=== PATIENT | female | born 1945 | race Caucasian/White ===

== ENCOUNTER 2020-05-07 09:31 | Outpatient (CLI) | payer MEDICARE, OTHER ==
[2020-05-07 10:05] LABS: BASOPHILS # (AUTO) 0.1 10^3/uL (0.0-0.1); EOSINOPHILS # (AUTO) 0.3 10^3/uL (0.0-0.7); EOSINOPHILS % (AUTO) 4.8 %; HGB - HEMOGLOBIN 13.1 g/dL (12.0-16.0); LYMPHOCYTES # (AUTO) 1.5 10^3/uL (1.5-3.5); LYMPHOCYTES % (AUTO) 28.1 %; MEAN CORPUSCULAR HEMOGLOBIN 33.9 pg (27.0-31.0); MEAN CORPUSCULAR HGB CONC 33.2 g/dL (32.0-36.0); MEAN CORPUSCULAR VOLUME 102.1 fL (81.0-99.0); MEAN PLATELET VOLUME 9.8 fL (7.9-10.8); MONOCYTES # (AUTO) 0.5 10^3/uL (0.0-1.0); MONOCYTES % (AUTO) 9.3 %; NEUTROPHILS # (AUTO) 2.9 10^3/uL (1.5-6.6); NEUTROPHILS % (AUTO) 56.6 %; PLT - PLATELET COUNT 234 10^3/uL (130-450); RED BLOOD COUNT 3.86 10^6/uL (4.20-5.40); RED CELL DISTRIBUTION WIDTH 13.2 % (12.0-15.0); WHITE BLOOD COUNT 5.2 x10^3/uL (4.8-10.8)
[2020-05-07 10:34] LABS: ALBUMIN 4.5 g/dL (3.2-5.5); ALBUMIN/GLOBULIN RATIO 2.4 (1.0-2.2); ALKALINE PHOSPHATASE 55 IU/L (42-121); ALT ALANINE AMINOTRANSFERASE 34 IU/L (10-60); AST ASPARTATE AMINOTRANSFERASE 31 IU/L (10-42); BUN - BLOOD UREA NITROGEN 22 mg/dL (6-20); CALCIUM 9.1 mg/dL (8.5-10.3); CARBON DIOXIDE - CO2 27 mmol/L (21-32); CHLORIDE 101 mmol/L (101-111); CHOL/HDL RATIO 2.5 (<4.4); CHOLESTEROL 226 mg/dL; CREATININE 0.7 mg/dL (0.4-1.0); GLUCOSE 102 mg/dL (70-100); HDL CHOLESTEROL 91 mg/dL; LDL CHOLESTEROL,CALCULATED 125 mg/dL; LDL/HDL RATIO 1.4 (<4.4); SODIUM 138 mmol/L (135-145); TOTAL PROTEIN 6.4 g/dL (6.7-8.2); VLDL CHOLESTEROL 10 mg/dL
[2020-05-07 11:00] LABS: CRP - C-REACTIVE PROTEIN < 1.0 mg/dL (0-1.0)
[2020-05-07 11:17] LABS: RHEUMATOID FACTOR NEGATIVE (Negative)
--- NOTE | 2020-05-07 14:23 | XRAY Report ---
PROCEDURE: Lumbar Spine 2 View INDICATIONS: LAB DRAW,BACK HIP JOINT PAIN RT,RT KNEE ARTHRITIS TECHNIQUE: 3 views of the lumbar spine were acquired. COMPARISON: None. FINDINGS: Bones: 5 [id number] vertebrae are present. There is normal bony alignment. No vertebral body compression fractures. No suspicious bony lesions. Note is made of mild convex rightward scoliosis centered at L3, and on sagittal imaging the degenerative disc disease is mild to the L3-4 level, and moderate at L4-5 and L5-S1. Facet osteoarthritis becomes progressively more prominent from L3 inferio rly and is most pronounced at L4-5 and L5-S1. This allows anterolisthesis grade 1 of L4 on L5. Soft tissues: Overlying bowel gas pattern is normal. No suspicious soft tissue calcifications. IMPRESSION: No compression fracture found. The degenerative disc disease and facet osteoarthritis is moderate in severity overall, and most pronounced at L4-5 and L5-S1 comprised of both disc degenerat ion and facet osteoarthritis. Spinal and foraminal stenosis at these 2 levels likely is present. Reviewed by: Adalberto Magdaleno MD on 05/07/2020 2:22 PM PDT Approved by: Adalberto Magdaleno MD on 05/07/2020 2:22 PM PDT Station ID: [id number]
--- NOTE | 2020-05-07 14:26 | XRAY Report ---
PROCEDURE: Hips 2V BILAT INDICATIONS: LAB DRAW,BACK HIP JOINT PAIN RT,RT KNEE ARTHRITIS TECHNIQUE: 3 views of the hips bilaterally were acquired. COMPARISON: None FINDINGS: Bones: No fractures or dislocations, but there is asymmetric hip joint osteoarthritis severe on the right and mild on the left. There is near [id number]-cu-[id number] articulation at the right hip joint.. No susp icious bony lesions. The visualized pelvic ring appears intact. Soft tissues: No suspicious soft tissue calcifications or masses. IMPRESSION: Asymmetric prominent right hip joint osteoarthritis with near [id number]-mc-[id number] articulation at the right hip joint, when compared to near normal appearance on the left. Reviewed by: Adalberto Magdaleno MD on 05/07/2020 2:24 PM PDT Approved by: Adalberto Magdaleno MD on 05/07/2020 2:24 PM PDT Station ID: [id number]
--- NOTE | 2020-05-07 14:28 | XRAY Report ---
PROCEDURE: Knee 4 View BILAT INDICATIONS: LAB DRAW,BACK HIP JOINT PAIN RT,RT KNEE ARTHRITIS TECHNIQUE: 3 views of the bilateral knee(s) were acquired. COMPARISON: None. FINDINGS: Bones: No fractures or dislocations, but there is a mild degree of medial compartment knee joint ost eoarthritis as indicated by joint space narrowing. There is no joint effusion or intra-articular loos e body. No suspicious bony lesions. Soft tissues: No joint effusion. No suspicious soft tissue calcifications. IMPRESSION: Mild medial compartment knee joint osteoarthritis symmetric bilaterally. Reviewed by: Adalberto Magdaleno MD on 05/07/2020 2:26 PM PDT Approved by: Adalberto Magdaleno MD on 05/07/2020 2:26 PM PDT Station ID: [id number]
== END 2020-05-07 09:32 | disposition home or self-care (01) ==
LOC: LAB 09:31 → DI 09:32
PROVIDERS: ATTEND Nurse Practitioner
DX: M35.3 Polymyalgia rheumatica (principal); M51.16 Intervertebral disc disorders with radiculopathy, lumbar region; M48.061 Spinal stenosis, lumbar region without neurogenic claudication; M47.26 Other spondylosis with radiculopathy, lumbar region; M16.0 Bilateral primary osteoarthritis of hip; M17.0 Bilateral primary osteoarthritis of knee; Z82.49 Family history of ischemic heart disease and other diseases of the circulatory system; Z82.61 Family history of arthritis
CPT/HCPCS: 36415; 72100; 73521; 80053; 80061; 83721; 85025; 85651; 86038; 86039; 86140; 86430

== ENCOUNTER 2020-07-30 10:40 | Outpatient (CLI) | payer MEDICARE, OTHER ==
--- NOTE | 2020-07-30 16:53 | XRAY Report ---
PROCEDURE: Hip w/Pelvis 2-3V RT INDICATIONS: STATUS POST HIP REPLACEMENT RT TECHNIQUE: AP pelvis with lateral view of the right hip. COMPARISON: None. FINDINGS: Bones: No fractures or dislocations. Pelvic ring appears intact. A right hip prosthesis is demonst rated. No definite suspicious. Prosthetic lucencies. No suspicious bony lesions. Soft tissues: The visualized bowel gas pattern is normal. No suspicious soft tissue calcifications. IMPRESSION: 1. Right hip prosthesis demonstrated without fractures or suspicious periprosthetic lucencies. Reviewed by: Noble De Paz MD on 07/30/2020 4:51 PM PDT Approved by: Noble De Paz MD on 07/30/2020 4:51 PM PDT Station ID: [id number]
== END 2020-07-30 10:41 | disposition home or self-care (01) ==
LOC: DI 10:40
PROVIDERS: ATTEND Orthopaedic Surgery
DX: Z09 Encounter for follow-up examination after completed treatment for conditions other than malignant neoplasm (principal); Z96.641 Presence of right artificial hip joint